=== PATIENT | male | born 1980 | race Hispanic/Latino ===

== ENCOUNTER → 2019-04-09 | Outpatient (CLI) | payer BC ==
[~2019-04-09] MED LIST: BUSPAR15 MG; IOPAMIDOL 370 MG/ML 200 ML INFUS..BTL INJ ONE; SODIUM CHLORIDE 0.9% 50ML 50 ML ONE; Z.0.GEMFIBROZIL600 M; Z.0.GLUCOPHAGE500 MG; Z.0.XANAX1 MG
[2019-04-09 17:49] LABS: BLOOD UREA NITROGEN 13 mg/dL (7-26); BUN/CREATININE RATIO 14 (6-25); CREATININE, SERUM 0.96 mg/dL (0.72-1.25); EST GLOMERULAR FILTRATION RATE > 60 ML/MIN (60-)
--- NOTE | 2019-04-09 18:25 | Diagnostic Imaging Report ---
EXAMINATION: CT of the abdomen and pelvis with contrast. TECHNIQUE: Helical CT images of the abdomen and pelvis were performed from the lung bases to the lesser trochanters after the intravenous administration of 100 cc of Omnipaque 300 and the oral administration of none. Coronal and sagittal reformatted images were obtained.Dose modulation, iterative reconstruction, and/or weight based adjustment of the mA/kV was utilized to reduce the radiation dose to as low as reasonably achievable. COMPARISON: None. CLINICAL HISTORY:abdominal pain DISCUSSION: ABDOMEN/PELVIS: LOWER THORAX:Unremarkable. HEPATOBILIARY: Hepatic steatosis. No intra-or extrahepatic biliary ductal dilation. The gallbladder is normal. SPLEEN: No splenomegaly. PANCREAS: No focal masses or ductal dilatation. ADRENALS: No adrenal nodules. KIDNEYS/URETERS: Simple right renal cyst. No obstruction. No calculi. PELVIC ORGANS/BLADDER: The bladder is normal. PERITONEUM/RETROPERITONEUM: No free air or fluid. LYMPH NODES: No intra-abdominal, retroperitoneal, pelvic or inguinal lymphadenopathy. VESSELS: Unremarkable. GI TRACT: No obstruction. Appendix normal. BONES AND SOFT TISSUE: No bony destructive lesions. No soft tissue abnormalities. IMPRESSION: No acute CT finding. No pancreatitis. Hepatic steatosis. Signed by: Dr. Huang Wilder M.D. on 04/09/2019 6:23 PM
== END ==
LOC: CT 17:07
PROVIDERS: ATTEND Family Medicine
DX: R10.12 Left upper quadrant pain (principal)
CPT/HCPCS: 36415; 74177; 82565; 84520; Q9967

== ENCOUNTER → 2019-11-15 | Day surgery (SDC) | payer BC, OTHER ==
[2019-11-12 09:00] LABS: BASOPHILS % 0.3 % (0.0-1.0); EOSINOPHILS # (AUTO) 0.1 (0.0-0.4); EOSINOPHILS % 1.4 % (0.0-6.0); HEMATOCRIT 36.8 % (38.2-49.6); HEMOGLOBIN 12.9 g/dL (14.0-18.0); LYMPHOCYTES # (AUTO) 1.4 (1.0-3.2); LYMPHOCYTES % 23.1 % (18.0-39.1); MEAN CORPUSCULAR HEMOGLOBIN 31.6 pg (28-32); MEAN CORPUSCULAR HGB CONC 35.1 g/dL (31-35); MEAN CORPUSCULAR VOLUME 90.2 fL (81-99); MONOCYTES # (AUTO) 0.6 (0.2-0.8); NEUTROPHILS % 64.7 % (38.7-80.0); PLATELET COUNT 251 x10e3/uL (140-360); RED BLOOD COUNT 4.08 x10e6/uL (4.3-5.7); RED CELL DISTRIBUTION WIDTH 13.1 % (11.7-14.4)
[2019-11-12 09:13] LABS: INR 0.89; PROTHROMBIN TIME 12.5 seconds (11.9-14.5)
[2019-11-12 09:23] LABS: ALANINE AMINOTRANSFERASE 39 IU/L (0-55); ALBUMIN 4.6 g/dL (3.5-5.0); ALBUMIN/GLOBULIN RATIO 1.6 (0.8-2.0); ALKALINE PHOSPHATASE 47 IU/L (40-150); BLOOD UREA NITROGEN 10 mg/dL (7-26); BUN/CREATININE RATIO 10 (6-25); CALCIUM 9.1 mg/dL (8.4-10.2); CARBON DIOXIDE 23 mmol/L (22-29); CHLORIDE 101 mmol/L (98-107); EST GLOMERULAR FILTRATION RATE > 60 ML/MIN (60-); GLUCOSE 127 mg/dL (74-118); SODIUM 138 mmol/L (136-145)
[2019-11-15] VITALS (9 sets, daily range): BP systolic 102–128; BP diastolic 58–87
[~2019-11-15] VITALS: Ht 175.3 cm; Wt 104.3 kg
[~2019-11-15] MED LIST changes: +CRESTOR20 MG; +FARXIGA10 MG; +FENTANYL CITRATE/PF 100MCG/2 ML INJ ONE; +HEPARIN SOD (PORCINE) 1000 UNIT/ML 30ML ONE; +HEPARIN SOD/SOD CHLORIDE 2,000 ML ONE; +HYDROCODONE/APAP 5MG-325MG TAB ONE; +IOPAMIDOL 300MG/ML 100 ML INFUS..BTL IV ONE; +JANUMET 50-1,01 EACH; +LIDOCAINE HCL 2% LOCAL 20 ML VIAL ONE; +MIDAZOLAM HCL 2 MG/2 ML VIAL ONE; +PANTOPRAZOLE SO20 MG PO; +SODIUM CHLORIDE 0.9% 1000ML 1,000 ML ONE; -SODIUM CHLORIDE 0.9% 50ML 50 ML ONE; +TRICOR48 MG PO; +VERAPAMIL HCL 2.5 MG/ML 2 ML VIAL ONE; +ZESTRIL20 MG PO
--- NOTE | 2019-11-15 14:45 | NUR ---
1445pm RECEIVING NOTE VICE PRESIDENT [employer]............................................................... Bedside report received from CRISTIAN Patel. Identifierx2. Alert oriented and appropriate, PERRLA, respirations even and unlabored to room air. Pulses x4 extremities equal and strong. Pedal pulses PT/DP X4 and marked. Cap fill brisk < 3 sec. Rt TR band approach NO fix no CAD Rt radial approach abort Rt Groin angio closure NO gross issues pain pallor pressure or dysrhythmia.1545pm scheduled trband air removal time.Normal neuro vascular function. Rt Angoseal NO gross issues hematoma or oozing dressing dry and intact. Skin warm and dry integrity appears D/I. IV 20g to left hand presents healthy w/o s/s of infiltration or complaint. Abdomen soft and supple. pt offered toileting, denies need to urinate or defecate. No personal affects with patient. Family will pu pt later.. Pt and family verbalizes understanding of POC. Currently w/o complaint of pain or need. alonzo/rn
--- NOTE | 2019-11-15 15:30 | NUR ---
1530p assist with snack tray and po intake tolerated well.ds/rn
--- NOTE | 2019-11-15 16:00 | NUR ---
1600pRADIAL Compression removal: Initial Cuff volume 13 cc 1600p -3cc Removed No hematoma/bleeding noted with normal neurovascular function. 1615p -5cc Removed No hematoma/ bleeding noted with normal neurovascular function. 1630 -5cc Removed No hematoma/bleeding noted with normal neurovascular function. Air removal completed. Stasis achieved sterile 2x2,Tegaderm, Coban dressing No hematoma, bleeding noted with normal neurovascular function. Pt instructed on POC. Ds/Rn
--- NOTE | 2019-11-15 16:26 | NUR ---
1600 c/o back discomfort Jorge RN re assessed RT groin NO gross issues pain,pallor,pressure or dysrhythmia.Normal neuro vascular funciton to rt wrist. Rt Groin site healthy. Sister phoned and will arrive at 445pm [facility]. Medicated [place] 352/5x1 po for pain 5/10 tolerated po intake Back to baseline Orientation. ds/rn
--- NOTE | 2019-11-15 17:00 | NUR ---
1700pm DESK CLERK RECOVERY DISCHARGE NURSING NOTE Pt meets DC criteria. Rt groin angioseal and rt TRband site assessed for s/s of complication and presence of hematoma. Skin warm, dry, no discolor, and pulses present. IV removed from left hand, Distal tip appears intact. VS WNL. Pt denies pain, sob, or need at this time. Family taught at [facility], [place]. Review of discharge paperwork and follow up instructions. verbalized understanding. Pt to wheelchair and transported to front of hospital. Transferred to private vehicle under own strength w/o incident with DC paperwork in hand. - ds/rn
--- NOTE | 2019-11-15 18:32 | Operative Report ---
DATE OF PROCEDURE: 11/15/2019 SURGEON: Isaac La DO PROCEDURES PERFORMED: 1. Conscious sedation, 30 minutes. 2. Selective coronary angiography x2. 3. Left heart catheterization. PRE-PROCEDURE DIAGNOSIS: Abnormal stress test with risk factors. POST-PROCEDURE DIAGNOSIS: No significant coronary artery disease. ESTIMATED BLOOD LOSS: Less than 10 mL. SPECIMENS REMOVED: None. PROCEDURE IN DETAIL: After informed consent was obtained, the patient was brought to the cardiac catheterization laboratory in a fasting and nonsedated state. Bilateral groins and right wrist were prepped and draped in usual sterile fashion. A 2% lidocaine was infiltrated over the right wrist for local anesthesia. The patient received fentanyl and midazolam, administered by salvage laborer nurse and his neurologic and physiologic status was monitored by myself and salvage laborer staff for 30 minutes. Next, I could not adequately cannulate the coronary arteries via right radial approach, so I turned my attention to the groin. A 2% lidocaine was infiltrated in the groin for local anesthesia. Using micropuncture needle, the right common femoral artery was accessed via modified Seldinger technique and a 6-Chinese sheath was placed. Next, diagnostic coronary angiography and left heart catheterization were performed. No intervention was deemed necessary. The patient tolerated the procedure well. No immediate complications. Closure device was used for hemostasis with an Angio-Seal. He was transferred back to his room in stable condition. PROCEDURAL FINDINGS: 1. Left main coronary artery is patent. 2. Left anterior descending coronary artery is patent with luminal irregularities. 3. The left circumflex coronary provides one bifurcating obtuse marginal vessel with luminal irregularities. 4. Ramus intermedius coronary artery is patent. 5. Right coronary artery is patent and provides the posterior lateral and posterior descending coronary arteries. 6. Left ventricular end-diastolic pressure is 10. RECOMMENDATIONS: This patient has no significant coronary artery disease. Continue medical therapy. Isaac La DO BM/MODL /[id number]
== END | disposition home or self-care (01) ==
LOC: CATH LAB 11:00
PROVIDERS: ATTEND Internal Medicine Cardiovascular Disease
DX: R94.39 Abnormal result of other cardiovascular function study (principal); I10 Essential (primary) hypertension; E78.5 Hyperlipidemia, unspecified; E11.9 Type 2 diabetes mellitus without complications; Z01.812 Encounter for preprocedural laboratory examination; Z11.59 Encounter for screening for other viral diseases; Z68.33 Body mass index [BMI] 33.0-33.9, adult; Z82.49 Family history of ischemic heart disease and other diseases of the circulatory system; Z83.3 Family history of diabetes mellitus
CPT/HCPCS: 36415; 76937; 80053; 85025; 85610; 93458; C1760; C1769; C1887; C1894; J1644; J2001; J2250; J3010; J7030; Q9967; U0002; 99152; 99153